=== PATIENT | female | born 1990 | race Caucasian/White ===

== ENCOUNTER → 2017-03-25 | Outpatient (CLI) | payer BC ==
--- NOTE | 2017-03-25 11:00 | US ---
EXAMINATION TYPE: US OB anatomy transabd DATE OF EXAM: 03/25/2017 COMPARISON: NONE HISTORY: Large for Dates O36.63X0 LGA TECHNIQUE: Transabdominal (TA) EXAM MEASUREMENTS: GESTATIONAL AGE / DATING Physician Established: (35 weeks/2 days) EDC: 04/27/2017 Dates by LMP: Unknown Dates by First Scan: No prior Dates by Current Scan for: (34 weeks/5 days) EDC: 05/01/2017 SURVEY IUP: Single PLACENTA: Anterior PREVIA: No previa AUBREY: 10.5 cm Normal CERVICAL LENGTH (transabdominal: norm > 3.0cm): 3.2 cm BIOMETRY PRESENTATION: Vertex BPD: 8.9 cm 36 weeks / 1 days HC: 32.0 cm 36 weeks / 0 days AC: 30.3 cm 34 weeks / 2 days FL: 6.7 cm 34 weeks / 2 days ESTIMATED WEIGHT IN GRAMS: 2471 grams ESTIMATED WEIGHT IN LBS/OZ: 5 lbs. 7 oz. WEIGHT PERCENTAGE BASED ON ESTABLISHED DATE: 29 % HC/AC: 1.06 Normal FL/AC: 22 Normal HEART RATE: 135 bpm RHYTHM: Normal ANATOMY SEEN (within normal limits): * Lateral Vent (< 1 cm) 0.6 cm Midline Falx Cavus Septi Pellucidi Four Chamber Heart Outflow tracts: LVOT/RVOT Stomach Situs Nose / Lips Diaphragm Kidneys (bilateral) Bladder Cord Insert Three Vessel Cord ANATOMY NOT SEEN: * Cisterna Magna (< 1.1 cm) * Cerebellum (varies with age) Choroid Plexus (bilateral) Longitudinal Spine Transverse Spine Arms (bilateral) Legs (bilateral) IMPRESSION: *Single, viable IUP/ Growth parameters in 29th percentile/ No abnormality seen at this time
== END ==
LOC: RADUSWWP 10:08
PROVIDERS: ATTEND Obstetrics & Gynecology
DX: O36.63X0 Maternal care for excessive fetal growth, third trimester, not applicable or unspecified (principal); Z3A.35 35 weeks gestation of pregnancy
CPT/HCPCS: 76811

== ENCOUNTER 2017-04-26 05:35 | Inpatient (IN) | payer BC ==
[2017-04-26] MEDS ORDERED: OXYTOCIN 10 UNIT/ML 1 ML VIAL IM PRN (05:47)
[2017-04-26] MEDS ORDERED: METHYLERGONOVINE 0.2 MG/ML 1 ML AMP IM PRN (05:47)
[2017-04-26] MEDS ORDERED: TERBUTALINE 1 MG/ML VIAL SQ PRN (05:47)
[2017-04-26] MEDS ORDERED: OXYTOCIN 20 UNITS/1000 ML NS 1,000 ML IV SCH (05:47)
[2017-04-26] MEDS ORDERED: LIDOCAINE 1% (PF) 10 MG/ML (30 ML SDV) SQ PRN (05:47)
[2017-04-26] MEDS ORDERED: CARBOPROST TROMETHAMINE 250 MCG/ML 1 ML AMP IM PRN (05:47)
[2017-04-26] MEDS: LACTATED RINGERS 1,000 ML IV SCH ×3 (06:02→23:04)
[2017-04-26 06:12] LABS: Basophils # (A) 0.1 k/uL (0-0.2); Basophils % (A) 1 %; CH 27.9; CHCM 32.5; Eosinophils # (A) 0.4 k/uL (0-0.7); Eosinophils % (A) 3 %; HCT 35.3 % (34.0-46.0); HDW 2.78; HGB 11.3 gm/dL (11.4-16.0); Luc # (Auto) 0.14; Luc % (Auto) 1; Lymphocytes # (A) 3.8 k/uL (1.0-4.8); Lymphocytes % (A) 24 %; MCH 27.6 pg (25.0-35.0); MCHC 31.9 g/dL (31.0-37.0); MCV 86.5 fL (80.0-100.0); Mean Platelet Volume 7.8; Monocytes # (A) 0.9 k/uL (0-1.0); Monocytes % (A) 6 %; Neutrophils # (A) 10.2 k/uL (1.3-7.7); Neutrophils % (A) 65 %; RBC 4.08 m/uL (3.80-5.40); RDW 13.9 % (11.5-15.5); WBC 15.6 k/uL (3.8-10.6); WBC (Perox) 16.64
[2017-04-26 06:13] VITALS: BMI 23.1
--- NOTE | 2017-04-26 07:00 | P.HPOB ---
History of Present Illness H&P Date: 04/26/17 Chief Complaint: Induction of Labor 27 year old presents at 39 weeks 6 days for induction of labor. HEr cervix is 1/70/-2 and she is not genevieve. heart tones are 135-140 with moderate variability and reactive. Review of Systems All systems: negative Constitutional: Denies chills, Denies fever Eyes: denies blurred vision, denies pain Ears, nose, mouth and throat: Denies headache, Denies sore throat Cardiovascular: Denies chest pain, Denies shortness of breath Respiratory: Denies cough Gastrointestinal: Denies abdominal pain, Denies diarrhea, Denies nausea, Denies vomiting Genitourinary: Denies dysuria, Denies hematuria Musculoskeletal: Denies myalgias Integumentary: Denies pruritus, Denies rash Neurological: Denies numbness, Denies weakness Psychiatric: Denies anxiety, Denies depression Endocrine: Denies fatigue, Denies weight change Past Medical History Past Medical History: No Reported History Additional Past Medical History / Comment(s): Obstetric history: First was a vaginal delivery. this is her second . A neg, abs neg, RPR NR, Hep B neg, RUb Imm. GBS neg. She started care with me at 14 weeks but really has only had 4 visits with me in the office. 14 weeks, 18 weeks , 35 weeks and 39 weeks. She was very noncompliant with her care. History of Any Multi-Drug Resistant Organisms: None Reported Additional Past Surgical History / Comment(s): orbital surgery 8 years ago, left eye Past Anesthesia/Blood Transfusion Reactions: No Reported Reaction Past Psychological History: No Psychological Hx Reported Smoking Status: Never smoker Past Drug Use History: None Reported - Past Family History Brother(s) Family Medical History: Renal Disease Medications and Allergies Home Medications Medication Instructions Recorded Confirmed Type Vit No.124/Iron/Folic 1 tab PO DAILY 04/29/15 04/26/17 History [ Vitamin Tablet] Allergies Allergy/AdvReac Type Severity Reaction Status Date / Time No Known Allergies Allergy Verified 04/26/17 05:47 Exam Osteopathic Statement: *. No significant issues noted on an osteopathic structural exam other than those noted in the History and Physical/Consult. - Vital Signs Vital signs: Vital Signs Temp Pulse Resp BP 04/26/17 06:03 97.4 F L 95 16 120/74 Intake and Output 04/25/17 04/25/17 04/26/17 14:59 22:59 06:59 Other: # Voids 1 Weight 67.132 kg Patient Weight 04/26/17 06:59 Weight 67.132 kg HEart: RRR Lungs: CTAB Abdomen: soft, nontender Extremeties: neg bernadette's Results Result Diagrams: 04/26/17 06:00 Abnormal Lab Results - Last 24 Hours (Table) 04/26/17 Range/Units 06:00 WBC 15.6 H (3.8-10.6) k/uL Hgb 11.3 L (11.4-16.0) gm/dL Neutrophils # 10.2 H (1.3-7.7) k/uL Assessment and Plan (1) Normal labor Current Visit: Yes Status: Acute Code(s): O80 - ENCOUNTER FOR FULL-TERM UNCOMPLICATED DELIVERY; Z37.9 - OUTCOME OF DELIVERY, UNSPECIFIED SNOMED Code(s ): 10798662 Plan: 1. admit to family 2. induction of labor with amniotomy and pitocin 3. anticipate normal vaginal delivery
[2017-04-26] MEDS: BUTORPHANOL 1 MG/ML 1 ML VIAL IV PRN ×2 (11:35→14:04)
[2017-04-26] MEDS ORDERED: Acetaminophen-Codeine 300-30mg TAB PO PRN ×2 (16:32)
[2017-04-26] MEDS ORDERED: BENZOCAINE/MENTHOL SPRAY 1 GM/SPRAY AEROSOL TOPICAL PRN (16:32)
[2017-04-26] MEDS ORDERED: LANOLIN CREAM 5 GM TUBE TOPICAL PRN (16:32)
[2017-04-26] MEDS ORDERED: WITCH HAZEL 1 EACH MED..PAD TOPICAL PRN (16:32)
[2017-04-26] MEDS ORDERED: SIMETHICONE 80 MG CHEWABLE PO PRN (16:32)
[2017-04-26] MEDS ORDERED: IBUPROFEN 600 MG TAB PO PRN (16:32)
[2017-04-26] MEDS ORDERED: ACETAMINOPHEN TAB 325 MG TAB PO PRN (16:32)
[2017-04-26] MEDS ORDERED: diphenhydrAMINE 50 MG CAP PO PRN (16:32)
[2017-04-26] MEDS ORDERED: ZOLPIDEM 5 MG TAB PO PRN (16:32)
[2017-04-26] MEDS ORDERED: HYDROCORTISONE 2.5% RECTAL CREAM 30 GM TUBE RECTAL PRN (16:32)
[2017-04-26] MEDS ORDERED: diphenhydrAMINE 25 MG CAP PO PRN (16:32)
[2017-04-26] MEDS ORDERED: MEASLES-MUMPS-RUBELLA VACC/PF 12,500 UNIT/0.5 ML VIAL SQ ONE (16:32)
[2017-04-26] MEDS: SENNOSIDES-DOCUSATE SODIUM 1 EACH TAB PO SCH (23:56)
[2017-04-27 07:44] VITALS: BP 101/58; PULSE 77; RESP 18; TEMP 98
[2017-04-27 08:03] LABS: Basophils # (A) 0.1 k/uL (0-0.2); Basophils % (A) 0 %; CH 28.4; CHCM 32.5; Eosinophils # (A) 0.1 k/uL (0-0.7); Eosinophils % (A) 0 %; HCT 31.4 % (34.0-46.0); HDW 2.89; HGB 9.9 gm/dL (11.4-16.0); Luc % (Auto) 1; Lymphocytes # (A) 2.5 k/uL (1.0-4.8); Lymphocytes % (A) 12 %; MCH 27.7 pg (25.0-35.0); MCHC 31.4 g/dL (31.0-37.0); MCV 88.1 fL (80.0-100.0); Mean Platelet Volume 7.8; Monocytes % (A) 5 %; Neutrophils # (A) 16.8 k/uL (1.3-7.7); Neutrophils % (A) 81 %; RBC 3.57 m/uL (3.80-5.40); RDW 12.9 % (11.5-15.5); WBC 20.7 k/uL (3.8-10.6); WBC (Perox) 21.13
[2017-04-27] MEDS ORDERED: DIPH,PERTUS(ACELL)TETVAC-LF 0.5 ML VIAL IM ONE (09:57)
[2017-04-27] MEDS: SENNOSIDES-DOCUSATE SODIUM 1 EACH TAB PO SCH (09:58)
--- NOTE | 2017-04-27 10:08 | P.PROBDLV ---
Vaginal Delivery Note - . Vaginal Delivery Note: 27-year-old presented at 39 weeks and 6 days for induction of labor. Her cervix is 1 cm dilated, 70% effaced, and -2 station.she is not genevieve. heart tones were 135-140 with moderate variability and reactive. Amniotomy was performed at 6:53 AM clear fluid noted. Pitocin was also started. She progressed throughout the day and the Pitocin was increased. When her cervix was completely dilated, se pushed, and delivered a viable female over intact perineum at 1538. Head delivered OA, nuchal cord 1 easily reduced, anterior shoulder delivered gentle downward traction followed by posterior shoulder and rest of body. Nose and mouth bulb suctioned, cord clamped and cut, placed on mother's abdomen. Apgars 7, 9, weight 7 lbs. 7 oz. Placenta delivered spontaneously, intact with three-vessel cord at 1541. vagina, cervix, and perineum inspected. No lacerations noted. Estimated blood loss 100 mL.
--- NOTE | 2017-04-27 10:09 | P.DS ---
Providers Date of admission: 04/26/17 05:35 Expected date of discharge: 04/27/17 Attending physician: Helena Carpio Primary care physician: Stated None - Discharge Diagnosis(es) (1) Normal labor Current Visit: Yes Status: Resolved (2) Normal vaginal delivery Current Visit: No Status: Acute Hospital Course: presented for induction of labor. She underwent normal vaginal delivery. Her course was uncomplicated. She'll be discharged home day # 1 to follow-up with me in 6 weeks. Plan - Discharge Summary New Discharge Prescriptions: New Ibuprofen [Motrin] 600 mg PO Q6HR PRN #30 tab PRN Reason: Mild Pain Or Fever >= 100.5 No Action Vit No.124/Iron/Folic [ Vitamin Tablet] 1 tab PO DAILY Discharge Medication List Vit No.124/Iron/Folic [ Vitamin Tablet] 1 tab PO DAILY [History] Ibuprofen [Motrin] 600 mg PO Q6HR PRN #30 tab 04/27/17 [Rx] Follow up Appointment(s)/Referral(s): Helena Carpio DO [Doctor of Osteopathic Medicine] - 6 Weeks
== END 2017-04-27 16:32 | disposition home or self-care (01) | DRG 775 ==
LOC: 4FBP 05:35
PROVIDERS: ADMIT Obstetrics & Gynecology; ATTEND Obstetrics & Gynecology
PROC: 10907ZC Drainage of Amniotic Fluid, Therapeutic from Products of Conception, Via Natural or Artificial Opening (ICD-10-PCS; 2017-04-26)
PROC: 3E033VJ Introduction of Other Hormone into Peripheral Vein, Percutaneous Approach (ICD-10-PCS; 2017-04-26)
PROC: 10E0XZZ Delivery of Products of Conception, External Approach (ICD-10-PCS; principal; 2017-04-27)
DX: O69.81X0 Labor and delivery complicated by cord around neck, without compression, not applicable or unspecified (principal); Z91.19 Patient's noncompliance with other medical treatment and regimen; Z37.0 Single live birth; Z3A.39 39 weeks gestation of pregnancy
CPT/HCPCS: 85025; 88307; 90707; 90715

== ENCOUNTER 2019-04-19 09:50 | Emergency (ER) | payer BC ==
[2019-04-19 09:56] VITALS: RESP 18; TEMP 98.1
--- NOTE | 2019-04-19 11:08 | ED ---
Female Urogenital HPI - General Chief complaint: Vaginal Bleeding Stated complaint: 12wks preg, bleeding Time Seen by Provider: 04/19/19 10:21 Source: patient Mode of arrival: ambulatory Limitations: no limitations - History of Present Illness Initial comments: Patient is a 29-year-old female presenting to emergency Department with complaints of vaginal bleeding that happened today. Patient is currently 12 weeks . She is . Patient's SCREENING REPRESENTATIVE is Dr. Carpio however, she has not seen her for this yet. She has not had ultrasounds or blood work. Patient's last menstrual cycle was in January. Patient does have an appointment in a couple weeks. Patient states the has been going well thus far. Patient denies any fever, chills, abdominal pain at this time. Patient states she got up this morning to use the restroom and noticed a large amount of blood in the toilet. Patient is unsure if the bleeding is continuing and she just came straight to the ER. Patient denies any burning with urination, rectal bleeding. Patient has no other complaints at this time. Upon arrival to ER, vital signs are stable. - Related Data Home Medications Medication Instructions Recorded Confirmed Vit No.124/Iron/Folic 1 tab PO DAILY 04/29/15 04/26/17 [ Vitamin Tablet] Previous Rx's Medication Instructions Recorded Ibuprofen [Motrin] 600 mg PO Q6HR PRN #30 tab 04/27/17 Allergies Allergy/AdvReac Type Severity Reaction Status Date / Time No Known Allergies Allergy Verified 04/19/19 09:53 Review of Systems ROS Statement: Those systems with pertinent positive or pertinent negative responses have been documented in the HPI. ROS Other: All systems not noted in ROS Statement are negative. Past Medical History Past Medical History: No Reported History Additional Past Medical History / Comment(s): Obstetric history: First was a vaginal delivery. this is her second . A neg, abs neg, RPR NR, Hep B neg, RUb Imm. GBS neg. She started care with me at 14 weeks but really has only had 4 visits with me in the office. 14 weeks, 18 weeks, 35 weeks and 39 weeks. She was very noncompliant with her care. History of Any Multi-Drug Resistant Organisms: None Reported Additional Past Surgical History / Comment(s): orbital surgery 8 years ago, left eye Past Anesthesia/Blood Transfusion Reactions: No Reported Reaction Past Psychological History: No Psychological Hx Reported Smoking Status: Never smoker Past Alcohol Use History: None Reported Past Drug Use History: None Reported - Past Family History Brother(s) Family Medical History: Renal Disease General Exam - General Exam Comments Initial Comments: GENERAL: Well-appearing, well-nourished and in no acute distress. HEAD: Atraumatic, normocephalic. EYES: Pupils equal round and reactive to light, extraocular movements intact, sclera anicteric, conjunctiva are normal. ENT: Moist mucous membranes. NECK: Normal range of motion, supple without lymphadenopathy or JVD. LUNGS: Breath sounds clear to auscultation bilaterally and equal. No wheezes rales or rhonchi. HEART: Regular rate and rhythm without murmurs, rubs or gallops. ABDOMEN: Soft, nontender, normoactive bowel sounds. No guarding, no rebound. No masses appreciated. : Deferred, declined. EXTREMITIES: Normal range of motion, no pitting or edema. No clubbing or cyanosis. NEUROLOGICAL: Normal speech, normal gait. PSYCH: Normal mood, normal affect. SKIN: Warm, Dry, normal turgor, no rashes or lesions noted. Limitations: no limitations Course Vital Signs 04/19/19 04/19/19 09:53 13:25 Temperature 98.1 F Pulse Rate 58 L 72 Respiratory 18 18 Rate Blood Pressure 117/72 115/65 O2 Sat by Pulse 97 99 Oximetry Medical Decision Making - Medical Decision Making Patient is a 29-year-old female presenting with vaginal bleeding times one day. Patient is currently 12 weeks . . Patient's OB is Dr. Carpio although she has not seen her yet. Patient denies any abdominal pain. Patient' s exam is unremarkable today. Patient declined vaginal exam at this time. Lab work shows no acute findings at this time. HCG [place] is 3114. UA shows large amount of blood as well as WBCs but also many squama epithelia cells. Urine will be cultured and is pending at this time. Ultrasound shows no heart tones. Sonographic findings of demise. Patient's blood type is B-. Rhogam was given today. Patient is stable for discharge at this time. Vital signs have remained stable. Patient will follow up with Dr. Carpio. Return parameters were discussed with the patient she verbalized understanding. Case discussed with Dr. Morales. - Lab Data Result diagrams: 04/19/19 10:55 04/19/19 10:55 Lab Results 04/19/19 04/19/19 04/19/19 Range/Units 10:55 10:55 10:55 WBC 11.1 H (3.8-10.6) k/uL RBC 4.48 (3.80-5.40) m/uL Hgb 13.7 (11.4-16.0) gm/dL Hct 38.9 (34.0-46.0) % MCV 86.9 (80.0-100.0) fL MCH 30.5 (25.0-35.0) pg MCHC 35.1 (31.0-37.0) g/dL RDW 11.9 (11.5-15.5) % Plt Count 216 (150-450) k/uL Neutrophils % 77 % Lymphocytes % 13 % Monocytes % 6 % Eosinophils % 2 % Basophils % 1 % Neutrophils # 8.5 H (1.3-7.7) k/uL Lymphocytes # 1.5 (1.0-4.8) k/uL Monocytes # 0.6 (0-1.0) k/uL Eosinophils # 0.2 (0-0.7) k/uL Basophils # 0.1 (0-0.2) k/uL Sodium 140 (137-145) mmol/L Potassium 4.3 (3.5-5.1) mmol/L Chloride 103 (98-107) mmol/L Carbon Dioxide 25 (22-30) mmol/L Anion Gap 12 mmol/L BUN 9 (7-17) mg/dL Creatinine 0.62 (0.52-1.04) mg/dL Est GFR (CKD-EPI)AfAm >90 (>60 ml/min/1.73 sqM) Est GFR (CKD-EPI)NonAf >90 (>60 ml/min/1.73 sqM) Glucose 97 (74-99) mg/dL Calcium 9.5 (8.4-10.2) mg/dL Total Bilirubin 0.6 (0.2-1.3) mg/dL AST 23 (14-36) U/L ALT 12 (9-52) U/L Alkaline Phosphatase 49 (38-126) U/L Total Protein 8.0 (6.3-8.2) g/dL Albumin 4.6 (3.5-5.0) g/dL HCG, Quant 3114.5 mIU/mL Urine Color Urine Appearance (Clear) Urine pH (5.0-8.0) Ur Specific Cable (1.001-1.035) Urine Protein (Negative) Urine Glucose (UA) (Negative) Urine Ketones (Negative) Urine Blood (Negative) Urine Nitrite (Negative) Urine Bilirubin (Negative) Urine Urobilinogen (<2.0) mg/dL Ur Leukocyte Esterase (Negative) Urine RBC (0-5) /hpf Urine WBC (0-5) /hpf Ur Squamous Epith Cells (0-4) /hpf Urine Bacteria (None) /hpf Urine Mucus (None) /hpf Blood Type B Negative Blood Type Recheck B Neg Bld Type Recheck Status No Antibody Screen NEGATIVE 04/19/19 Range/Units 11:11 WBC (3.8-10.6) k/uL RBC (3.80-5.40) m/uL Hgb (11.4-16.0) gm/dL Hct (34.0-46.0) % MCV (80.0-100.0) fL MCH (25.0-35.0) pg MCHC (31.0-37.0) g/dL RDW (11.5-15.5) % Plt Count (150-450) k/uL Neutrophils % % Lymphocytes % % Monocytes % % Eosinophils % % Basophils % % Neutrophils # (1.3-7.7) k/uL Lymphocytes # (1.0-4.8) k/uL Monocytes # (0-1.0) k/uL Eosinophils # (0-0.7) k/uL Basophils # (0-0.2) k/uL Sodium (137-145) mmol/L Potassium (3.5-5.1) mmol/L Chloride (98-107) mmol/L Carbon Dioxide (22-30) mmol/L Anion Gap mmol/L BUN (7-17) mg/dL Creatinine (0.52-1.04) mg/dL Est GFR (CKD-EPI)AfAm (>60 ml/min/1.73 sqM) Est GFR (CKD-EPI)NonAf (>60 ml/min/1.73 sqM) Glucose (74-99) mg/dL Calcium (8.4-10.2) mg/dL Total Bilirubin (0.2-1.3) mg/dL AST (14-36) U/L ALT (9-52) U/L Alkaline Phosphatase (38-126) U/L Total Protein (6.3-8.2) g/dL Albumin (3.5-5.0) g/dL HCG, Quant mIU/mL Urine Color Yellow Urine Appearance Cloudy H (Clear) Urine pH 6.0 (5.0-8.0) Ur Specific Cable 1.030 (1.001-1.035) Urine Protein 1+ H (Negative) Urine Glucose (UA) Negative (Negative) Urine Ketones 2+ H (Negative) Urine Blood Moderate H (Negative) Urine Nitrite Negative (Negative) Urine Bilirubin Negative (Negative) Urine Urobilinogen <2.0 (<2.0) mg/dL Ur Leukocyte Esterase Large H (Negative) Urine RBC 15 H (0-5) /hpf Urine WBC 57 H (0-5) /hpf Ur Squamous Epith Cells 46 H (0-4) /hpf Urine Bacteria Moderate H (None) /hpf Urine Mucus Many H (None) /hpf Blood Type Blood Type Recheck Bld Type Recheck Status Antibody Screen Disposition Clinical Impression: Vaginal bleeding, Incomplete miscarriage Disposition: HOME SELF-CARE Condition: Stable Instructions (If sedation given, give patient instructions): Miscarriage (ED) Additional Instructions: Please return to the Emergency Department if symptoms worsen or any other co ncerns. Follow-up with Dr. Carpio today. Repeat beta hCG in 2 days. Is patient prescribed a controlled substance at d/c from ED?: No Referrals: None,Stated [Primary Care Provider] - 1-2 days Helena Carpio DO [Family Provider] - 1-2 days
[2019-04-19 11:20] LABS: Basophils # (A) 0.1 k/uL (0-0.2); Basophils % (A) 1 %; Eosinophils # (A) 0.2 k/uL (0-0.7); Eosinophils % (A) 2 %; HCT 38.9 % (34.0-46.0); HGB 13.7 gm/dL (11.4-16.0); Lymphocytes # (A) 1.5 k/uL (1.0-4.8); Lymphocytes % (A) 13 %; MCH 30.5 pg (25.0-35.0); MCHC 35.1 g/dL (31.0-37.0); MCV 86.9 fL (80.0-100.0); Mean Platelet Volume 6.3; Monocytes # (A) 0.6 k/uL (0-1.0); Monocytes % (A) 6 %; Neutrophils # (A) 8.5 k/uL (1.3-7.7); Neutrophils % (A) 77 %; Platelet Count 216 k/uL (150-450); RBC 4.48 m/uL (3.80-5.40); RDW 11.9 % (11.5-15.5); WBC 11.1 k/uL (3.8-10.6)
[2019-04-19 11:34] LABS: Appearance,Urine Cloudy (Clear); Bacteria,Urine Moderate /hpf; Bilirubin,Urine Negative (Negative); Blood,Urine Moderate (Negative); Color,Urine Yellow; Glucose,Urine (UA) Negative (Negative); Ketones,Urine 2+ (Negative); Leukocyte Esterase,Urine Large (Negative); Mucus,Urine Many /hpf; Nitrite,Urine Negative (Negative); Protein,Urine 1+ (Negative); RBC,Urine 15 /hpf (0-5); Squamous Epithelial Cell,Urine 46 /hpf (0-4); Urobilinogen,Urine <2.0 mg/dL (<2.0)
[2019-04-19 11:42] LABS: ALT 12 U/L (9-52); AST 23 U/L (14-36); African American GFR (CKD) >90 (>60 ml/min/1.73 sqM); Albumin 4.6 g/dL (3.5-5.0); Alkaline Phosphatase 49 U/L (38-126); Anion Gap 12 mmol/L; Blood Urea Nitrogen 9 mg/dL (7-17); Calcium 9.5 mg/dL (8.4-10.2); Carbon Dioxide 25 mmol/L (22-30); Chloride 103 mmol/L (98-107); Glucose 97 mg/dL (74-99); Sodium 140 mmol/L (137-145); Total Bilirubin 0.6 mg/dL (0.2-1.3)
[2019-04-19 11:45] LABS: Potassium 4.3 mmol/L (3.5-5.1)
--- NOTE | 2019-04-19 11:51 | US ---
EXAMINATION TYPE: Transabdominal DATE OF EXAM: 04/19/2019 11:36 AM COMPARISON: NONE CLINICAL HISTORY: 12wks , bleeding.Bleeding EXAM PERFORMED: Transabdominal (TA) EXAM MEASUREMENTS: GESTATIONAL AGE / DATING Physician Established: Not yet established Dates by LMP: LMP unknown Dates by First Scan: No previous this is first scan Dates by Current Scan for: (8 weeks/2 days) MATERNAL ANATOMY Uterus: 10.1 x 10.6 x 7.2 cm Right Ovary: 2.5 x 1.5 x 1.8 cm Left Ovary: obscured by bowel gas. Post CDS / Adnexa: wnl Presence of free fluid: no Presence of corpus luteal cyst: no Presence of subchorionic bleed: no GESTATION / SURVEY CRL: 1.8cm (8 weeks/2 days) Heart Rate No heart tones seen. IUP: Demise No heart tones seen. No vascular flow to the fetus. IMPRESSION: Sonographic findings of demise. No heart tones are seen.
[2019-04-19 11:58] LABS: HCG,Quantitative Serum 3114.5 mIU/mL
[2019-04-19] MEDS ORDERED: Rhogam IMMUNE GLOBULIN 1,500 UNIT/1 ML IM ONE (12:31)
[2019-04-19 13:26] VITALS: BP 115/65; PULSE 72
== END 2019-04-19 13:25 | disposition home or self-care (01) ==
LOC: EC 09:50
DX: O03.4 Incomplete spontaneous abortion without complication (principal); O36.4XX0 Maternal care for intrauterine death, not applicable or unspecified; Z3A.12 12 weeks gestation of pregnancy; Z79.899 Other long term (current) drug therapy
CPT/HCPCS: 36415; 86900; 86901; 80053; 85025; 86850; 81001; 84702; 87086; 76801; 96372; 99284; J2791

== ENCOUNTER 2023-04-01 11:15 | Day surgery (SDC) | payer BC ==
--- NOTE | 2023-04-01 08:30 | P.HPOB ---
History of Present Illness H&P Date: 04/01/23 Chief Complaint: blighted ovum 33 year old presents for suction D&C for 9 week blighted ovum. Review of Systems All systems: negative Constitutional: Denies chills, Denies fever Eyes: denies blurred vision, denies pain Ears, nose, mouth and throat: Denies headache, Denies sore throat Cardiovascular: Denies chest pain, Denies shortness of breath Respiratory: Denies cough Gastrointestinal: Denies abdominal pain, Denies diarrhea, Denies nausea, Denies vomiting Genitourinary: Denies dysuria, Denies hematuria Musculoskeletal: Denies myalgias Integumentary: Denies pruritus, Denies rash Neurological: Denies numbness, Denies weakness Psychiatric: Denies anxiety, Denies depression Endocrine: Denies fatigue, Denies weight change Past Medical History Past Medical History: No Reported History History of Any Multi-Drug Resistant Organisms: None Reported Additional Past Surgical History / Comment(s): orbital surgery 8 years ago, left eye, wisdom teeth removed 2021 Past Anesthesia/Blood Transfusion Reactions: No Reported Reaction Smoking Status: Never smoker - Past Family History Father Family Medical History: Cancer Additional Family Medical History / Comment(s): prostate Brother(s) Family Medical History: Renal Disease Medications and Allergies Home Medications Medication Instructions Recorded Confirmed Type Vit No.124/Iron/Folic 1 tab PO DAILY 04/29/15 03/29/23 History [ Vitamin Tablet] Allergies Allergy/AdvReac Type Severity Reaction Status Date / Time No Known Allergies Allergy Verified 03/29/23 12:52 Exam Osteopathic Statement: *. No significant issues noted on an osteopathic structural exam other than those noted in the History and Physical/Consult. Heart: Regular rate and rhythm Lungs: Clear to auscultation bilaterally Abdomen: Soft, nontender Extremities: Negative Homans sign Assessment and Plan (1) Blighted ovum Status: Acute Code(s): O02.0 - BLIGHTED OVUM AND NONHYDATIDIFORM MOLE SNOMED Code(s): 51032189 Plan: 1. suction D&C
[~2023-04-01 11:15] MED LIST: DEXAMETHASONE SOD PHOSPHATE 4 MG/ML 1 ML VIAL IV ONE; HYDROmorphone 0.5 MG/0.5 ML SYRINGE IVP PRN; LACTATED RINGERS 1,000 ML IV SCH; LIDOCAINE 1% (10MG/ML) FOR IV START INTRADERMA PRN; MIDAZOLAM 2 MG/2 ML VIAL IV PRN; ONDANSETRON 4 MG/2 ML VIAL IVP ONE; Pre Op ABX Message 1 EACH MISC MISCELLANE ONE
[2023-04-01] MEDS ORDERED: Rhogam IMMUNE GLOBULIN 1,500 UNIT/1 ML IM ONE ×2 (12:30→14:27)
[2023-04-01] MEDS ORDERED: LIDOCAINE 1% INJ 10MG/ML (20 ML MDV) ONE (12:53)
[2023-04-01] MEDS ORDERED: MIDAZOLAM 2 MG/2 ML VIAL ONE (12:53)
[2023-04-01] MEDS ORDERED: fentaNYL (PF) 50 MCG/ML 2 ML AMP ONE (12:53)
[2023-04-01] MEDS ORDERED: KETOROLAC 30 MG/ML 1 ML VIAL ONE (12:53)
[2023-04-01] MEDS ORDERED: PROPOFOL 10 MG/ML 20 ML VIAL IV ONE (12:53)
--- NOTE | 2023-04-01 13:26 | P.OP ---
Date of Procedure: 04/01/23 Preoperative Diagnosis: 1. blighted ovum Postoperative Diagnosis: same Procedure(s) Performed: Suction D&C Anesthesia: MAC (LMA) Surgeon: Helena Carpio Estimated Blood Loss (ml): 200 IV fluids (ml): 200 Urine output (ml): 30 Pathology: other (endometrial currettings-POC) Condition: stable Disposition: PACU Operative Findings: Moderate amount products of conception Description of Procedure: Patient is taken the operating room where general anesthesia was obtained without difficulty. She is prepped draped in normal sterile fashion in dorsal lithotomy position, legs placed in the Jacoby stirrups. Bladder was drained of all urine. Weighted speculum placed in vagina the anterior lip the cervix was grasped with single-tooth tenaculum. Uterus sounded to 11 cm. Chanel dilators were used to dilate the cervix so that a #10 curved suction curet could be introduced into the uterus. This current was passed several times to obtain all tissue and blood. A sharp curette was used to ensure all tissue had been removed and then the suction curet was passed a few more times. Hemostasis was assured. Patient tolerated procedure well. Sponge management counts correct 2. She was taken to recovery in stable condition.
[2023-04-01 13:58] VITALS: TEMP 97.7
[2023-04-01 14:54] VITALS: RESP 16
[2023-04-01 15:13] VITALS: BP 103/68; PULSE 67
== END 2023-04-01 15:26 | disposition home or self-care (01) ==
LOC: OR 11:15
PROVIDERS: ATTEND Obstetrics & Gynecology
DX: O02.0 Blighted ovum and nonhydatidiform mole (principal); Z80.42 Family history of malignant neoplasm of prostate; Z79.899 Other long term (current) drug therapy
CPT/HCPCS: 88305; 59820; J2250; J1100; J2405; J2001; J3010; J1885; J2704

== ENCOUNTER → 2023-08-11 | Outpatient (CLI) | payer BC ==
--- NOTE | 2023-08-11 20:03 | US ---
EXAMINATION TYPE: Transabdominal DATE OF EXAM: 08/11/2023 2:49 PM COMPARISON: NONE CLINICAL INDICATION: Female, 33 years old with history of Z36.89 SPECIFIED SCREENING; confi rm dates EXAM PERFORMED: Transabdominal (TA) EXAM MEASUREMENTS: GESTATIONAL AGE / DATING Physician Established: Not yet established Dates by LMP: LMP unknown Dates by First Scan: No previous this is first scan Dates by Current Scan for: (11 weeks/5 days) EDC: 02/25/2024 MATERNAL ANATOMY Uterus: 11.5 x 6.7 x 8.2 cm Right Ovary: 2.9 x 3.3 x 2.6 cm. Left Ovary: obscured by bowel gas Post CDS / Adnexa: wnl Presence of free fluid: no Presence of corpus luteal cyst: no Presence of subchorionic bleed: no GESTATION / SURVEY CRL: 4.86cm (11 weeks/5 days) Heart Rate: 155 bpm Rhythm: Normal IUP: Viable IUP IMPRESSION: 1. Single intrauterine gestation estimated at 11 weeks 5 days gestation based on crown-rump length. C ardiac activity measuring 155 beats per minute was observed during the study
== END | disposition home or self-care (01) ==
LOC: RADUSWWP 14:23
PROVIDERS: ATTEND Obstetrics & Gynecology
DX: Z36.89 Encounter for other specified antenatal screening (principal); Z3A.12 12 weeks gestation of pregnancy
CPT/HCPCS: 76801

== ENCOUNTER 2024-03-03 06:00 | Inpatient (IN) | payer BC ==
[2024-03-03] MEDS ORDERED: TERBUTALINE 1 MG/ML VIAL SQ PRN (12:48)
[2024-03-03] MEDS ORDERED: TRANEXAMIC 1,000 MG/100ML-NACL 1,000 MG in EMPTY BAG 1 BAG IV PRN (12:48)
[2024-03-03] MEDS ORDERED: miSOPROStoL 200 MCG TAB PO PRN (12:48)
[2024-03-03] MEDS ORDERED: LIDOCAINE 0.5% (PF) 5 MG/ML (50 ML SDV) SQ PRN (12:48)
[2024-03-03] MEDS ORDERED: CARBOPROST TROMETHAMINE 250 MCG/ML 1 ML AMP IM PRN (12:48)
[2024-03-03] MEDS ORDERED: miSOPROStoL 200 MCG TAB RECTAL PRN (12:48)
[2024-03-03] MEDS ORDERED: OXYTOCIN 10 UNIT/ML 1 ML VIAL IM PRN (12:48)
[2024-03-03] MEDS ORDERED: METHYLERGONOVINE 0.2 MG/ML 1 ML AMP IM PRN (12:48)
[2024-03-03] MEDS: LACTATED RINGERS 1,000 ML IV SCH (13:10)
[2024-03-03] MEDS: OXYTOCIN 30 UNITS/500 ML NS 30 UNIT in SALINE 1 500ML.BAG IV SCH (13:22)
[2024-03-03 13:27] LABS: Basophils # (A) 0.1 k/uL (0-0.2); Basophils % (A) 1 %; Eosinophils # (A) 0.1 k/uL (0-0.7); Eosinophils % (A) 1 %; HCT 32.5 % (34.0-46.0); HGB 10.7 gm/dL (11.4-16.0); Hypochromasia Slight; Lymphocytes # (A) 2.1 k/uL (1.0-4.8); Lymphocytes % (A) 23 %; MCH 26.7 pg (25.0-35.0); MCHC 32.8 g/dL (31.0-37.0); MCV 81.4 fL (80.0-100.0); Monocytes # (A) 0.5 k/uL (0-1.0); Monocytes % (A) 6 %; Neutrophils # (A) 6.1 k/uL (1.3-7.7); Neutrophils % (A) 68 %; Platelet Count 294 k/uL (150-450); RDW 13.6 % (11.5-15.5); WBC 9.1 k/uL (3.8-10.6)
--- NOTE | 2024-03-03 17:31 | P.HPOB ---
History of Present Illness H&P Date: 03/03/24 Chief Complaint: induction of labor 34 year old presents at 40 weeks for induction of labor. Her cervix is 2-3/60/-2 and she is not genevieve. heart tones 140 with moderate variability and reactive. Review of Systems All systems: negative Constitutional: Denies chills, Denies fever Eyes: denies blurred vision, denies pain Ears, nose, mouth and throat: Denies headache, Denies sore throat Cardiovascular: Denies chest pain, Denies shortness of breath Respiratory: Denies cough Gastrointestinal: Denies abdominal pain, Denies diarrhea, Denies nausea, Denies vomiting Genitourinary: Denies dysuria, Denies hematuria Musculoskeletal: Denies myalgias Integumentary: Denies pruritus, Denies rash Neurological: Denies numbness, Denies weakness Psychiatric: Denies anxiety, Denies depression Endocrine: Denies fatigue, Denies weight change Past Medical History Past Medical History: No Reported History Additional Past Medical History / Comment(s): previous 2 vaginal deliveries and 2 SABs History of Any Multi-Drug Resistant Organisms: None Reported Additional Past Surgical History / Comment(s): orbital surgery, left eye, wisdom teeth removed 2021 Past Anesthesia/Blood Transfusion Reactions: No Reported Reaction Past Psychological History: No Psychological Hx Reported Smoking Status: Never smoker Past Alcohol Use History: None Reported Past Drug Use History: None Reported - Past Family History Father Family Medical History: Cancer Additional Family Medical History / Comment(s): prostate Brother(s) Family Medical History: Renal Disease Medications and Allergies Home Medications Medication Instructions Recorded Confirmed Type Vit No.124/Iron/Folic 1 tab PO DAILY 04/29/15 03/03/24 History [ Vitamin Tablet] Allergies Allergy/AdvReac Type Severity Reaction Status Date / Time No Known Allergies Allergy Verified 03/03/24 12:48 Exam Osteopathic Statement: *. No significant issues noted on an osteopathic structural exam other than those noted in the History and Physical/Consult. Vital Signs Temp Pulse Resp BP 03/03/24 12:59 97.2 F L 81 17 120/69 Intake and Output 03/03/24 03/03/24 03/03/24 06:59 14:59 22:59 Other: # Voids 1 Weight 71.214 kg HEart: RRR Lungs: CTAB Abdomen: soft, nontender Extremeties: neg bernadette's Results Result Diagrams: 03/03/24 13:10 Abnormal Lab Results - Last 24 Hours (Table) 03/03/24 Range/Units 13:10 Hgb 10.7 L (11.4-16.0) gm/dL Hct 32.5 L (34.0-46.0) % Assessment and Plan (1) Encounter for induction of labor Current Visit: Yes Status: Acute Code(s): Z34.90 - ENCNTR FOR SUPRVSN OF NORMAL , UNSP, UNSP TRIMESTER SNOMED Code(s): 664040317 Plan: 1. induction of labor with amniotomy and pitocin 2. anticipate normal vaginal delivery
[2024-03-03] MEDS: NALBUPHINE 10 MG/ML (10 ML MDV) IV PRN (17:48)
[2024-03-03] MEDS ORDERED: ZOLPIDEM 5 MG TAB PO PRN (20:05)
[2024-03-03] MEDS ORDERED: diphenhydrAMINE 25 MG CAP PO PRN (20:05)
[2024-03-03] MEDS ORDERED: diphenhydrAMINE 50 MG/ML 1 ML VIAL IVP PRN ×2 (20:05)
[2024-03-03] MEDS ORDERED: SIMETHICONE 80 MG CHEWABLE PO PRN (20:05)
[2024-03-03] MEDS ORDERED: BENZOCAINE/MENTHOL SPRAY 1 GM/SPRAY AEROSOL TOPICAL PRN (20:05)
[2024-03-03] MEDS ORDERED: LANOLIN CREAM 1 GM TUBE TOPICAL PRN (20:05)
[2024-03-03] MEDS ORDERED: diphenhydrAMINE 50 MG CAP PO PRN (20:05)
[2024-03-03] MEDS ORDERED: HYDROCORTISONE 2.5% RECTAL CREAM 30 GM TUBE RECTAL PRN (20:05)
--- NOTE | 2024-03-03 20:09 | P.PROBDLV ---
Vaginal Delivery Note - . Vaginal Delivery Note: 34 year old presents at 40 weeks for induction of labor. Her cervix is 2-3/60/-2 and she is not genevieve. heart tones 140 with moderate variability and reactive. Pitocin was started around 1300 and amniotomy performed at 1315 clear fluid noted. The patient progressed slowly until she was in active labor. She had one dose of Nubain. Her cervix was completely dilated at 1923. She pushed, delivered a viable female over intact perineum at 1934. Head delivered OA, nuchal cord 1 easily reduced, anterior shoulder delivered gentle downward guidance for by posterior shoulder and rest of body. Nose and mouth bulb suctioned, cord clamped and cut, infant placed on mother's abdomen. Apgars 8, 9, weight pounds 8 ounces. Time delivered spontaneously, intact with three-vessel cord at 1937. Vagina, cervix, perineum inspected. No lacerations noted. Estimated blood loss 100 mL. Mother and baby in stable condition.
[2024-03-03] MEDS ORDERED: OXYTOCIN 30 UNITS/500 ML NS 30 UNIT in SALINE 1 500ML.BAG IV SCH (20:15)
[2024-03-03] MEDS: ACETAMINOPHEN TAB 325 MG TAB PO PRN (20:25)
[2024-03-03 21:30] VITALS: RESP 16
[2024-03-04 04:20] LABS: Basophils # (A) 0.1 k/uL (0-0.2); Basophils % (A) 0 %; Eosinophils % (A) 0 %; HCT 30.5 % (34.0-46.0); HGB 9.9 gm/dL (11.4-16.0); Hypochromasia Slight; Lymphocytes # (A) 2.3 k/uL (1.0-4.8); Lymphocytes % (A) 15 %; MCH 26.4 pg (25.0-35.0); MCHC 32.5 g/dL (31.0-37.0); MCV 81.3 fL (80.0-100.0); Mean Platelet Volume 8.9; Monocytes # (A) 0.9 k/uL (0-1.0); Monocytes % (A) 6 %; Neutrophils # (A) 11.3 k/uL (1.3-7.7); Neutrophils % (A) 76 %; Platelet Count 272 k/uL (150-450); RBC 3.75 m/uL (3.80-5.40); RDW 13.9 % (11.5-15.5); WBC 14.9 k/uL (3.8-10.6)
[2024-03-04] MEDS: Rhogam IMMUNE GLOBULIN 1,500 UNIT/1 ML IM ONE (04:56)
[2024-03-04] MEDS: SENNOSIDES-DOCUSATE SODIUM 1 EACH TAB PO SCH (08:09)
[2024-03-04 08:28] VITALS: BP 98/63
--- NOTE | 2024-03-04 11:11 | P.DS ---
Providers Date of admission: 03/03/24 12:28 Expected date of discharge: 03/04/24 Attending physician: Helena Carpio Primary care physician: Stated None - Discharge Diagnosis(es) (1) Normal vaginal delivery Current Visit: No Status: Acute Hospital Course: The patient is a 34-year-old 5 para 2 who presents to the hospital at 40 weeks for induction of labor with a favorable cervix. Her has been unremarkable and group B strep status is negative. On labor and delivery, she is found with a category 1 heart rate tracing. She had Pitocin augmentation started and underwent artificial rupture of membranes for clear fluid. She had an epidural catheter placed for analgesia and ultimately progressed to complete or after she pushed to a normal spontaneous vaginal delivery of a viable 8 pound 8 ounce baby girl with Apgars of 8 at 1 minute and 9 at 5 minutes. Her course was unremarkable with vital signs remaining stable and her temperature was afebrile throughout. She was deemed stable for discharge on day #1 and was discharged home to follow-up in the office in 6 weeks time routinely. Discharge instructions included calling for any significantly increased bleeding or foul-smelling lochia, significantly increased fever abdominal pain, perineal complaints, breast complaints, or anything else that concerned her. She was additionally instructed to have nothing in the vagina for at least 6 weeks time to include intercourse. She understood her instructions and agrees to follow-up as noted above. Discharge medications included continued vitamins as she has opted to breast-feed. She was otherwise to use [id number] analgesic pain medications as needed. Maternal blood type is B- and cord blood was sent for evaluation for the necessity of RhoGAM prior to discharge. Rubella status is immune. Procedures: #1. Pitocin induction #2. Artificial rupture of membranes #3. Epidural analgesia #4. Normal spontaneous vaginal delivery Patient Condition at Discharge: Stable Plan - Discharge Summary New Discharge Prescriptions: No Action Vit No.124/Iron/Folic [ Vitamin Tablet] 1 tab PO DAILY Discharge Medication List Vit No.124/Iron/Folic [ Vitamin Tablet] 1 tab PO DAILY 04/29/15 [History] Follow up Appointment(s)/Referral(s): Helena Carpio DO [Doctor of Osteopathic Medicine] - 6 Weeks Discharge Disposition: HOME SELF-CARE
[2024-03-04] MEDS: IBUPROFEN 600 MG TAB PO PRN (12:37)
[2024-03-04 15:51] VITALS: PULSE 84; TEMP 98.2
[2024-03-04] MEDS: DIPH,PERTUS(ACELL)TETVAC-LF 0.5 ML VIAL IM ONE (17:42)
== END 2024-03-04 19:55 | disposition home or self-care (01) | DRG 807 ==
LOC: 4FBP 12:28
PROVIDERS: ADMIT Obstetrics & Gynecology; ATTEND Obstetrics & Gynecology
PROC: 10E0XZZ Delivery of Products of Conception, External Approach (ICD-10-PCS; principal; 2024-03-03)
PROC: 10907ZC Drainage of Amniotic Fluid, Therapeutic from Products of Conception, Via Natural or Artificial Opening (ICD-10-PCS; 2024-03-03)
PROC: 3E033VJ Introduction of Other Hormone into Peripheral Vein, Percutaneous Approach (ICD-10-PCS; 2024-03-03)
PROC: 3E0234Z Introduction of Serum, Toxoid and Vaccine into Muscle, Percutaneous Approach (ICD-10-PCS; 2024-03-04)
DX: O48.0 Post-term pregnancy (principal); Z37.0 Single live birth; Z3A.40 40 weeks gestation of pregnancy; Z23 Encounter for immunization
CPT/HCPCS: 85025; 85461; 86850; 86900; 86901; 90715